=== PATIENT | male | born 1950 | race Caucasian/White ===

== ENCOUNTER 2019-01-16 16:27 | Emergency (ER) | payer BC ==
[2019-01-16] MEDS: ONDANSETRON 4 MG INJ IV (17:34)
[2019-01-16] MEDS: morphine 4 MG/ML VIAL IV (17:35)
[2019-01-16 17:37] LABS: ADD MAN DIFF? NO
[2019-01-16 17:41] LABS: BASOPHIL # 0.1 10^3/ul (0.0-0.1); BASOPHILS % 0.7 % (0.0-2.0); EOSINOPHILS # 0.1 10^3/ul (0.0-0.5); EOSINOPHILS % 1.1 % (0.0-7.0); HEMATOCRIT 35.5 % (42.0-52.0); HEMOGLOBIN 11.7 g/dl (14.0-18.0); LYMPHOCYTES # 1.9 10^3/ul (0.8-2.9); MEAN CORPUSCULAR HEMOGLOBIN 32.1 pg (29.0-33.0); MEAN CORPUSCULAR VOLUME 97.5 fl (82.0-101.0); MEAN PLATELET VOLUME 9.7 fl (7.4-10.4); MONOCYTE # 0.9 10^3/ul (0.3-0.9); MONOCYTES % 13.2 % (0.0-11.0); NEUTROPHIL # 3.9 10^3/ul (1.6-7.5); PLATELET COUNT 262 10^3/UL (140-415); RED BLOOD COUNT 3.64 10^6/ul (4.70-6.10); RED CELL DISTRIBUTION WIDTH 13.2 % (11.5-14.5)
[2019-01-16 17:46] LABS: ADD UMIC NO; UR ASCORBIC ACID 40 mg/dL (NEGATIVE); UR BILIRUBIN (Dip) NEGATIVE (NEGATIVE); UR BLOOD (Dip) NEGATIVE (NEGATIVE); UR CLARITY CLEAR (CLEAR); UR COLOR YELLOW (YELLOW); UR GLUCOSE (Dip) 1+ mg/dL (NEGATIVE); UR KETONES (Dip) NEGATIVE (NEGATIVE); UR LEUKOCYTE ESTERASE (Dip) NEGATIVE Leu/ul (NEGATIVE); UR NITRITE (Dip) NEGATIVE (NEGATIVE); UR SPECIFIC GRAVITY (Dip) 1.026 (1.003-1.030); UR TOTAL PROTEIN (Dip) NEGATIVE (NEGATIVE); UR UROBILINOGEN (Dip) NEGATIVE (NEGATIVE)
[2019-01-16 17:59] LABS: ALANINE AMINOTRANSFERASE 39 IU/L (13-69); ALBUMIN 3.9 g/dl (3.3-4.9); ALBUMIN/GLOBULIN RATIO 1.18; ALKALINE PHOSPHATASE 76 IU/L (42-121); ANION GAP 11 (5-13); ASPARTATE AMINO TRANSFERASE 42 IU/L (15-46); BILIRUBIN,INDIRECT 0.1 mg/dl (0-1.1); BILIRUBIN,TOTAL 0.1 mg/dl (0.2-1.3); BLOOD UREA NITROGEN 21 mg/dl (7-20); CARBON DIOXIDE 24 mmol/L (21-31); CHLORIDE 105 mmol/L (97-110); CREATININE 1.27 mg/dl (0.61-1.24); Estimated GFR 56 mL/min (>60); GLUCOSE 143 mg/dl (70-220); LIPASE 69 U/L (23-300); POTASSIUM 4.3 mmol/L (3.5-5.1); SODIUM 140 mmol/L (135-144); TOTAL PROTEIN 7.2 g/dl (6.1-8.1)
== END 2019-01-16 19:47 | disposition home or self-care (01) ==
LOC: E/R 16:27
DX: K80.50 Calculus of bile duct without cholangitis or cholecystitis without obstruction (principal); J45.909 Unspecified asthma, uncomplicated; I10 Essential (primary) hypertension; F17.210 Nicotine dependence, cigarettes, uncomplicated; Z79.82 Long term (current) use of aspirin
CPT/HCPCS: 74176; 76705; 80053; 81003; 83690; 85025; 96374; 96375; 99285-25